=== PATIENT | female | born 1985 | race Two or more races ===

== ENCOUNTER 2020-01-21 10:15 | Inpatient (IN) | payer OTHER ==
[~2020-01-21] VITALS: Ht 167.6 cm; Wt 109.3 kg
[2020-01-23] MEDS ORDERED: PRENATAL + DHA1 EAC1 PO (10:05)
[2020-01-26] MEDS ORDERED: OXYC1TAB9 PO (08:28)
[2020-01-26] MEDS ORDERED: KETO10TA2 PO (08:28)
== END 2020-01-26 12:04 | disposition home or self-care (01) | DRG 788 ==
LOC: LDR 01-23 08:22 → O/R 01-23 18:37 → OB/GYN 01-23 18:50 → SURH 01-28 10:15
PROVIDERS: ADMIT Obstetrics & Gynecology; ATTEND Obstetrics & Gynecology
PROC: 4A1HXCZ Monitoring of Products of Conception, Cardiac Rate, External Approach (ICD-10-PCS; 2020-01-23)
PROC: 10D00Z1 Extraction of Products of Conception, Low, Open Approach (ICD-10-PCS; principal; 2020-01-23 13:00)
DX: O64.1XX0 Obstructed labor due to breech presentation, not applicable or unspecified (principal); Z3A.38 38 weeks gestation of pregnancy; Z37.0 Single live birth; Z20.828 Contact with and (suspected) exposure to other viral communicable diseases

== ENCOUNTER 2020-01-23 07:28 | Outpatient (CLI) | payer OTHER ==
[2020-01-23] MEDS ORDERED: PRENATAL + DHA1 EAC1 PO (10:05)
== END 2020-01-23 11:07 | disposition still patient (30) ==
LOC: NST 07:28
PROVIDERS: ATTEND Obstetrics & Gynecology
DX: Z34.83 Encounter for supervision of other normal pregnancy, third trimester (principal)

== ENCOUNTER 2021-11-24 11:18 | Outpatient (CLI) | payer OTHER ==
[~2021-11-24 11:18] MED LIST: KETO10TA2 PO; OXYC1TAB9 PO; PRENATAL + DHA1 EAC1 PO
== END 2021-11-24 12:07 | disposition home or self-care (01) ==
LOC: NST 11:18
PROVIDERS: ATTEND Obstetrics & Gynecology Gynecology
DX: Z34.83 Encounter for supervision of other normal pregnancy, third trimester (principal)

== ENCOUNTER 2021-11-30 08:45 | Inpatient (IN) | payer OTHER ==
[~2021-11-30] VITALS: Ht 167.6 cm; Wt 3.6 kg
[2021-11-30] MEDS ORDERED: PRENATAL PO (10:16)
== END 2021-12-04 18:10 | disposition home or self-care (01) | DRG 788 ==
LOC: EDSTATUS 08:45 → OB/GYN 12-02 08:45 → O/R 12-02 09:31 → OB/GYN 12-02 15:15
PROVIDERS: ADMIT Obstetrics & Gynecology Maternal & Fetal Medicine; ATTEND Obstetrics & Gynecology Maternal & Fetal Medicine
PROC: 4A1HXCZ Monitoring of Products of Conception, Cardiac Rate, External Approach (ICD-10-PCS; 2021-12-02)
PROC: 10D00Z1 Extraction of Products of Conception, Low, Open Approach (ICD-10-PCS; principal; 2021-12-02 18:15)
DX: O34.211 Maternal care for low transverse scar from previous cesarean delivery (principal); O36.63X0 Maternal care for excessive fetal growth, third trimester, not applicable or unspecified; Z3A.39 39 weeks gestation of pregnancy; Z37.0 Single live birth; Z20.822 Contact with and (suspected) exposure to COVID-19